=== PATIENT | female | born 1995 | race Caucasian/White ===

== ENCOUNTER 2017-09-27 11:58 | Emergency (ER) | payer BC, OTHER ==
[~2017-09-27] VITALS: Ht 160 cm; Wt 59.3 kg
[2017-09-27 12:01] VITALS: BP 125/86
[2017-09-27] MEDS ORDERED: SODIUM CHLORIDE FLUSH 10ML SYR IVF ONE (13:00)
[2017-09-27] MEDS ORDERED: SODIUM CHLORIDE 0.9% 1,000ML IVBOLUS ONE (13:00)
[2017-09-27] MEDS ORDERED: ONDANSETRON 2MG/ML, 2ML IVPush ONE (13:00)
[2017-09-27] MEDS ORDERED: KETOROLAC 30 MG/1 ML IVPush ONE (13:00)
[2017-09-27 13:11] LABS: ASPARTATE AMINO TRANSFERASE 7 U/L (15-37); BLOOD UREA NITROGEN 9 mg/dL (7-18)
[2017-09-27] MEDS ORDERED: ONDANSETRON 2MG/ML, 2ML ONE (13:19)
[2017-09-27] MEDS ORDERED: KETOROLAC 30 MG/1 ML ONE (13:19)
[2017-09-27 13:41] LABS: HEMATOCRIT 42.3 % (34.6-47.8); HEMOGLOBIN 14.4 g/dL (11.7-16.4); WHITE BLOOD COUNT 8.5 x10^3/uL (3.4-10)
== END 2017-09-27 14:52 | disposition home or self-care (01) ==
LOC: ED 14:24
DX: R10.32 Left lower quadrant pain (principal); F17.200 Nicotine dependence, unspecified, uncomplicated
CPT/HCPCS: 36415; 74020; 76830; 80053; 81003; 84703; 85025; 96361; 96374; 96375; 99285; J1885; J2405; J7030